=== PATIENT | female | born 1960 | race Caucasian/White ===

== ENCOUNTER → 2022-04-12 | Day surgery (SDC) | payer OTHER ==
[~2022-04-12] VITALS: Ht 165.1 cm; Wt 107.1 kg
[~2022-04-12] MED LIST: ARMOUR THYROID60 MG PO; MELATONIN5 M2 PO; XYZAL5 MG PO
[2022-04-12 06:26] LABS: HCT 42.5 % (37.0-47.0); MCH 27.2 pg (25.0-31.0); MCHC 32.9 g/dL (32.0-36.0); MCV 82.7 fL (78.0-100.0); RBC 5.14 M/uL (4.20-5.40); RDW 12.2 % (11.5-14.0); WBC 12.4 K/uL (4.0-10.5)
[2022-04-12 06:58] LABS: ALBUMIN 3.6 g/dL (3.4-5.0); BILIRUBIN - TOTAL 0.4 mg/dL (0.2-1.0); BUN/CREAT RATIO (CALC) 20.5 RATIO; CREATININE 0.78 mg/dL (0.51-0.95); GLOBULIN (CALCULATION) 3.9 g/dL; TOTAL PROTEIN 7.5 g/dL (6.4-8.2)
== END | disposition home or self-care (01) ==
LOC: FAS 05:58
PROVIDERS: Orthopaedic Surgery
DX: M75.121 Complete rotator cuff tear or rupture of right shoulder, not specified as traumatic (principal); M19.011 Primary osteoarthritis, right shoulder; M25.811 Other specified joint disorders, right shoulder; M77.9 Enthesopathy, unspecified; I10 Essential (primary) hypertension; F90.9 Attention-deficit hyperactivity disorder, unspecified type; E03.9 Hypothyroidism, unspecified; Z79.899 Other long term (current) drug therapy
CPT/HCPCS: 36415; 71045; 80053; 93005; C1713; J0171; J0690; J1100; J1885; J2250; J2405; J2704; J2710; J2795; J3010; J7120